=== PATIENT | male | born 1980 | race Caucasian/White ===

== ENCOUNTER 2018-06-04 14:18 | Emergency (ER) | payer OTHER ==
[~2018-06-04] VITALS: Ht 182.9 cm; Wt 76.7 kg
[~2018-06-04 14:18] MED LIST: ALPR1TAB2 PO; DEXT20TA2 PO; HYDR-2766 PO; IBUP-1060 PO; LITH300T3 PO
[2018-06-04 14:43] VITALS: BP 143/82
[2018-06-04] MEDS ORDERED: SULF1TAB24 PO (14:55)
[2018-06-04] MEDS ORDERED: MUPI22OI2 TP (14:56)
--- NOTE | 2018-06-04 14:56 | PHYS DOC ---
Past Medical History Past Medical History: No Pertinent History Past Surgical History: No Surgical History Additional Information: 0.5 PPD Alcohol Use: None Drug Use: None Adult General Chief Complaint Chief Complaint: ABSCESS HPI HPI Patient is a 37 year old male who presents with an abscess to the back of his scalp. The patient shaves his head and noticed a sore several days ago. He states that it has started draining but is still very painful and seems to be larger in size. He denies fever, nausea or vomiting. Review of Systems Review of Systems Constitutional: Denies fever or chills [] Eyes: Denies change in visual acuity, redness, or eye pain [] HENT: Denies nasal congestion or sore throat [] Respiratory: Denies cough or shortness of breath [] Cardiovascular: No additional information not addressed in HPI [] GI: Denies abdominal pain, nausea, vomiting, bloody stools or diarrhea [] : Denies dysuria or hematuria [] Musculoskeletal: Denies back pain or joint pain [] Integument: See HPI Neurologic: Denies headache, focal weakness or sensory changes [] Endocrine: Denies polyuria or polydipsia [] All other systems were reviewed and found to be within normal limits, except as documented in this note. Allergies Allergies Allergies Coded Allergies Type Severity Reaction Last Updated Verified Penicillins Allergy Unknown Hives 04/02/14 No Physical Exam Physical Exam Constitutional: Well developed, well nourished, no acute distress, non-toxic appearance. [] HENT: Normocephalic, atraumatic, bilateral external ears normal, oropharynx moist, no oral exudates, nose normal. [] Eyes: PERRLA, EOMI, conjunctiva normal, no discharge. [] Neck: Normal range of motion, no tenderness, supple, no stridor. [] Cardiovascular:Heart rate regular rhythm, no murmur [] Lungs & Thorax: Bilateral breath sounds clear to auscultation [] Abdomen: Bowel sounds normal, soft, no tenderness, no masses, no pulsatile masses. [] Skin: 2 cm area of erythema and induration with that is draining purulent matter Back: No tenderness, no CVA tenderness. [] Extremities: No tenderness, no cyanosis, no clubbing, ROM intact, no edema. [] Neurologic: Alert and oriented X 3, normal motor function, normal sensory function, no focal deficits noted. [] Psychologic: Affect normal, judgement normal, mood normal. [] Current Patient Data Vital Signs Vital Signs Date Time Temp Pulse Resp B/P (MAP) Pulse Ox O2 Delivery O2 Flow Rate FiO2 06/04/18 14:43 98.0 75 20 143/82 (102) 98 Room Air 98.0 EKG EKG [] Radiology/Procedures Radiology/Procedures [] Course & Med Decision Making Course & Med Decision Making Pertinent Labs and Imaging studies reviewed. (See chart for details) [] Dragon Disclaimer Dragon Disclaimer This electronic medical record was generated, in whole or in part, using a voice recognition dictation system. Departure Departure Impression: Primary Impression: Abscess Disposition: 01 HOME, SELF-CARE Condition: STABLE Referrals: KEM SANDERS (PCP) Patient Instructions: Abscess Additional Instructions: Take the antibiotic as directed. Use the ointment as directed. You may use ibuprofen or Tylenol for pain. Follow-up with your primary care provider in 4 days if not improving or return to the emergency department if worsening. Scripts Mupirocin (MUPIROCIN OINTMENT) 22 Gm Oint...g. 1 MASSIEL TP TID for WOUND CARE, #1 TUBE Prov: KAYA ORNELAS APRN 06/04/18 Sulfamethoxazole/Trimethoprim (BACTRIM DS TABLET) 1 Each Tablet 1 TAB PO BID, #20 TAB Prov: KAYA ORNELAS APRN 06/04/18 KAYA ORNELAS APRN Jun 04, 2018 14:56
== END 2018-06-04 15:20 | disposition home or self-care (01) ==
LOC: ER 14:18
DX: L02.811 Cutaneous abscess of head [any part, except face] (principal); F17.200 Nicotine dependence, unspecified, uncomplicated; Z88.0 Allergy status to penicillin
CPT/HCPCS: 99283